=== PATIENT | male | born 1960 | race Caucasian/White ===

== ENCOUNTER → 2016-11-06 | Day surgery (SDC) | payer OTHER ==
[~2016-11-06] VITALS: Ht 185.4 cm; Wt 127.0 kg
[~2016-11-06] MED LIST: ADVIL200 MG PO; AXIRON30 MG/1.5 TOP; BYSTOLIC2.5 MG PO; CLARITIN10 MG PO; FLUOXETINE HCL10 MG PO; FLUOXETINE HCL20 MG PO; LEVOTHROID (S137 MCG PO; LIPITOR10 MG PO
== END | disposition disaster alternative care site (69) ==
LOC: GPOC 11-03 15:00 → GEND 09:38
PROC: 0DBH8ZZ Excision of Cecum, Via Natural or Artificial Opening Endoscopic (ICD-10-PCS; principal; 2016-11-06)
PROC: 0DBN8ZZ Excision of Sigmoid Colon, Via Natural or Artificial Opening Endoscopic (ICD-10-PCS; 2016-11-06)
PROC: 0DBK8ZZ Excision of Ascending Colon, Via Natural or Artificial Opening Endoscopic (ICD-10-PCS; 2016-11-06)
DX: Z12.11 Encounter for screening for malignant neoplasm of colon (principal); D12.0 Benign neoplasm of cecum; D12.2 Benign neoplasm of ascending colon; K63.5 Polyp of colon; I10 Essential (primary) hypertension; Z79.899 Other long term (current) drug therapy
CPT/HCPCS: J7030